=== PATIENT | male | born 1965 | race Two or more races ===

== ENCOUNTER 2020-01-10 16:38 | Emergency (ER) | payer OTHER ==
[~2020-01-10] VITALS: Ht 180.3 cm; Wt 108.9 kg
[2020-01-10 17:02] VITALS: BP 131/74
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
[2020-01-10] MEDS ORDERED: IBUPROFEN800 MG ORAL (18:39)
[2020-01-10] MEDS ORDERED: ACETAMINOPHEN500 M3 ORAL (18:39)
[2020-01-10] MEDS ORDERED: CYCLOBENZAPRINE10 MG ORAL (18:39)
[2020-01-10 18:47] VITALS: BP 133/73
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
== END 2020-01-10 18:48 | disposition home or self-care (01) ==
LOC: EMR 17:33
DX: S63.502A Unspecified sprain of left wrist, initial encounter (principal); S13.4XXA Sprain of ligaments of cervical spine, initial encounter; V64.5XXA Driver of heavy transport vehicle injured in collision with heavy transport vehicle or bus in traffic accident, initial encounter; Y92.411 Interstate highway as the place of occurrence of the external cause
CPT/HCPCS: 70450; 72125; 72128; 72131; 99284